=== PATIENT | female | born 2000 | race Caucasian/White ===

== ENCOUNTER → 2022-02-03 | Outpatient (CLI) | payer OTHER ==
[2022-02-03 15:50] LABS: BASO # 0.1 10^3/uL (0.0-0.2); BASO % 0.6 % (0.0-1.0); EOS # 0.4 10^3/uL (0.0-0.5); EOS % 3.8 % (0.0-3.0); HEMOGLOBIN 15.1 g/dl (12.0-15.5); LYMPH # 3.3 10^3/uL (1.5-5.0); LYMPH % 29.8 % (24.0-44.0); MEAN CORPUSCULAR HEMOGLOBIN 30.4 pg (27.0-33.0); MEAN CORPUSCULAR HGB CONC 34.3 g/dl (32.0-36.5); MEAN CORPUSCULAR VOLUME 88.7 fl (80.0-96.0); MONO # 0.7 10^3/uL (0.0-0.8); MONO % 6.4 % (2.0-8.0); NEUTROPHILS # 6.5 10^3/uL (1.5-8.5); NEUTROPHILS % 58.9 % (36.0-66.0); PLATELET COUNT, AUTOMATED 257 10^3/uL (150-450); RED BLOOD COUNT 4.96 10^6/uL (4.00-5.40); WHITE BLOOD COUNT 11.1 10^3/uL (4.0-10.0)
[2022-02-03 16:18] LABS: ALBUMIN 4.3 GM/DL (3.2-5.2); ALT/SGPT 21 U/L (12-78); BILIRUBIN,TOTAL 0.6 MG/DL (0.2-1.0); BLOOD UREA NITROGEN 13 MG/DL (7-18); CALCIUM LEVEL 9.9 MG/DL (8.5-10.1); CARBON DIOXIDE LEVEL 26 MEQ/L (21-32); CHLORIDE LEVEL 108 MEQ/L (98-107); CREATININE FOR GFR 0.85 MG/DL (0.55-1.30); GLOMERULAR FILTRATION RATE > 60.0 (>60); GLUCOSE, FASTING 104 MG/DL (70-100); SODIUM LEVEL 141 MEQ/L (136-145); TOTAL PROTEIN 7.8 GM/DL (6.4-8.2)
== END ==
LOC: M WUC 13:38 → EDBD 13:38
PROVIDERS: ATTEND Nurse Practitioner Family
DX: R94.4 Abnormal results of kidney function studies (principal); R05.1 Acute cough

== ENCOUNTER → 2022-02-23 | Outpatient (CLI) | payer OTHER ==
[2022-02-23 16:49] LABS: CHOLESTEROL RISK RATIO 3.366 (<5); FREE T4 0.94 NG/DL (0.76-1.46); THYROID STIMULATING HORMONE 1.2 uIU/ML (0.358-3.740)
[2022-02-23 17:02] LABS: FOLLICLE STIMULATING HORMONE 2.4 mIU/mL; LUTEINIZING HORMONE 5.4 mIU/mL; PROLACTIN 16.6 NG/ML
[2022-02-25 20:10] LABS: TESTOSTERONE FREE (DIRECT) 2.3 pg/mL (0.0-4.2)
== END ==
LOC: M WUC 13:34
PROVIDERS: ATTEND Nurse Practitioner Family
DX: N92.6 Irregular menstruation, unspecified (principal)

== ENCOUNTER → 2022-03-26 | Outpatient (CLI) | payer OTHER | LOC: M WUC 13:47 | PROVIDERS: ATTEND Physician Assistant | DX: R07.1 Chest pain on breathing (principal) ==

== ENCOUNTER → 2022-06-23 | Outpatient (CLI) | payer OTHER ==
[2022-06-23 21:26] LABS: HCG, SERUM QUANTITATIVE 47715.1 MIU/ML (<4.2)
[2022-06-23 23:21] LABS: HCG, SERUM QUALITATIVE POSITIVE (NEGATIVE)
== END ==
LOC: M WUC 10:26
PROVIDERS: ATTEND Nurse Practitioner Family
DX: N91.2 Amenorrhea, unspecified (principal)

== ENCOUNTER → 2022-06-25 | Outpatient (CLI) | payer OTHER ==
[2022-06-25 18:25] LABS: HEMATOCRIT 42.2 % (36.0-47.0); HEMOGLOBIN 14.1 g/dl (12.0-15.5); MEAN CORPUSCULAR HEMOGLOBIN 30.1 pg (27.0-33.0); MEAN CORPUSCULAR HGB CONC 33.4 g/dl (32.0-36.5); PLATELET COUNT, AUTOMATED 238 10^3/uL (150-450); RED BLOOD COUNT 4.69 10^6/uL (4.00-5.40); WHITE BLOOD COUNT 9.8 10^3/uL (4.0-10.0)
[2022-06-25 18:41] LABS: GC DNA AMPLIFICATION NEGATIVE (NEGATIVE)
[2022-06-25 20:38] LABS: HEPATITIS C VIRUS ABY INDEX 0.1 INDEX (<0.8); HIV 1&2 SCREEN CENTAUR NEGATIVE (NEGATIVE)
== END ==
LOC: M PLALAB 12:55
PROVIDERS: ATTEND Obstetrics & Gynecology
DX: Z34.01 Encounter for supervision of normal first pregnancy, first trimester (principal); Z3A.00 Weeks of gestation of pregnancy not specified

== ENCOUNTER → 2022-07-30 | Outpatient (CLI) | payer OTHER | LOC: M PLALAB 11:18 | PROVIDERS: ATTEND Obstetrics & Gynecology | DX: Z36.89 Encounter for other specified antenatal screening (principal) ==

== ENCOUNTER → 2022-09-22 | Outpatient (CLI) | payer OTHER | LOC: M WHC 06:52 | PROVIDERS: ATTEND Specialist | DX: Z36.3 Encounter for antenatal screening for malformations (principal); Z3A.19 19 weeks gestation of pregnancy ==

== ENCOUNTER → 2022-10-26 | Outpatient (CLI) | payer OTHER | LOC: M WHC 07:33 | PROVIDERS: ATTEND Advanced Practice Midwife | DX: Z34.02 Encounter for supervision of normal first pregnancy, second trimester (principal) ==

== ENCOUNTER → 2022-11-17 | Outpatient (CLI) | payer OTHER ==
[2022-11-17 14:07] LABS: HEMATOCRIT 37.4 % (36.0-47.0); HEMOGLOBIN 12.3 g/dl (12.0-15.5); MEAN CORPUSCULAR HGB CONC 32.9 g/dl (32.0-36.5); MEAN CORPUSCULAR VOLUME 91.2 fl (80.0-96.0); PLATELET COUNT, AUTOMATED 246 10^3/uL (150-450)
[2022-11-17 15:45] LABS: GC DNA AMPLIFICATION NEGATIVE (NEGATIVE)
== END ==
LOC: M PLALAB 10:38
PROVIDERS: ATTEND Obstetrics & Gynecology
DX: Z36.9 Encounter for antenatal screening, unspecified (principal)
CPT/HCPCS: 36415; 82950; 85027; 86850; 86900; 86901; 87810; 87850; 90471; 90715; G0463; J2790

== ENCOUNTER → 2023-01-20 | Outpatient (REF) | payer OTHER ==
[~2023-01-20] MED LIST: COLA100C5 PO; IBUP80TA PO; OXYC1TAB23 PO; PRENTAB9 PO
== END ==
LOC: M PLALAB 09:27
PROVIDERS: ATTEND Obstetrics & Gynecology
DX: Z3A.36 36 weeks gestation of pregnancy (principal)
CPT/HCPCS: 87081; G0463

== ENCOUNTER → 2023-06-07 | Outpatient (CLI) | payer OTHER | LOC: M WHC 12:54 | PROVIDERS: ATTEND Registered Nurse | DX: N64.4 Mastodynia (principal) ==

== ENCOUNTER 2024-06-30 13:38 | Outpatient (CLI) | payer OTHER ==
[~2024-06-30] VITALS: Ht 157.5 cm; Wt 87.0 kg
[2024-06-30 13:55] VITALS: BP 114/66
[2024-06-30] MEDS ORDERED: PROZ10CA7 PO (13:58)
[2024-06-30] MEDS ORDERED: HOME MED LIST COMPLETE! XX SCH (14:00)
[2024-06-30 15:42] LABS: AMORPHOUS SEDIMENT SMALL (NEGATIVE); APPEARANCE, URINE HAZY (CLEAR); BACTERIA, URINE AUTO NEGATIVE (NEGATIVE); BILIRUBIN, URINE AUTO NEGATIVE (NEGATIVE); BLOOD, URINE BLOOD NEGATIVE (NEGATIVE); COLOR, URINE YELLOW (YELLOW); GLUCOSE, URINE (UA) AUTO NEGATIVE (NEGATIVE); KETONE, URINE AUTO NEGATIVE (NEGATIVE); LEUKOCYTE ESTERASE, URINE AUTO NEGATIVE (NEGATIVE); MUCUS, URINE SMALL (NEGATIVE); NITRITE, URINE AUTO NEGATIVE (NEGATIVE); PROTEIN, URINE AUTO NEGATIVE (NEGATIVE); RBC, URINE AUTO 0 /HPF (0-3); SPECIFIC GRAVITY URINE AUTO 1.014 (1.002-1.035); SQUAMOUS EPITHELIAL CELL UR AU 0 /HPF (0-6); UROBILINOGEN, URINE AUTO 0.2 mg/dL (0.0-2.0); WBC, URINE AUTO 3 /HPF (0-3)
== END 2024-06-30 15:22 | disposition home or self-care (01) ==
LOC: M LDO 13:38
PROVIDERS: ATTEND Advanced Practice Midwife
DX: O26.893 Other specified pregnancy related conditions, third trimester (principal); O34.211 Maternal care for low transverse scar from previous cesarean delivery; O99.343 Other mental disorders complicating pregnancy, third trimester; O99.513 Diseases of the respiratory system complicating pregnancy, third trimester; F32.A Depression, unspecified; R10.2 Pelvic and perineal pain; J45.909 Unspecified asthma, uncomplicated; Z3A.28 28 weeks gestation of pregnancy
CPT/HCPCS: 59025; 81001; G0463

== ENCOUNTER 2024-08-10 22:13 | Outpatient (CLI) | payer OTHER ==
[~2024-08-10] VITALS: Ht 157.5 cm; Wt 91.8 kg
[~2024-08-10 22:13] MED LIST changes: +PROZ10CA7 PO
[2024-08-10 22:29] VITALS: BP 121/67
== END 2024-08-10 23:18 | disposition home or self-care (01) ==
LOC: M LDO 22:13
PROVIDERS: ATTEND Specialist
DX: O26.893 Other specified pregnancy related conditions, third trimester (principal); O26.23 Pregnancy care for patient with recurrent pregnancy loss, third trimester; R10.2 Pelvic and perineal pain; Z3A.34 34 weeks gestation of pregnancy
CPT/HCPCS: 59025; G0463

== ENCOUNTER → 2024-08-18 | Outpatient (CLI) | payer OTHER ==
[2024-08-18 16:14] LABS: GLUCOSE CHALLENGE TEST 1 HOUR 86 MG/DL (LESS THAN 140); HEMATOCRIT 34.1 % (36.0-47.0); HEMOGLOBIN 11.2 g/dl (12.0-15.5); MEAN CORPUSCULAR HEMOGLOBIN 28.8 pg (27.0-33.0); MEAN CORPUSCULAR HGB CONC 32.8 g/dl (32.0-36.5); MEAN CORPUSCULAR VOLUME 87.7 fl (80.0-96.0); PLATELET COUNT, AUTOMATED 259 10^3/uL (150-450); RED BLOOD COUNT 3.89 10^6/uL (4.00-5.40); WHITE BLOOD COUNT 9.4 10^3/uL (4.0-10.0)
[2024-08-18 16:50] LABS: HIV 1&2 SCREEN NEGATIVE (NEGATIVE)
[2024-08-18 16:57] LABS: HEPATITIS C VIRUS ABY INDEX 0.02 INDEX (<0.8)
[2024-08-18 17:42] LABS: GC DNA AMPLIFICATION NEGATIVE (NEGATIVE)
== END ==
LOC: M PLALAB 11:40
PROVIDERS: ATTEND Obstetrics & Gynecology
DX: Z34.93 Encounter for supervision of normal pregnancy, unspecified, third trimester (principal)
CPT/HCPCS: 36415; 82950; 85027; 86780; 86803; 86850; 86900; 86901; 87088; 87186; 87389; 87810; 87850; J2790

== ENCOUNTER → 2024-08-24 | Outpatient (REF) | payer OTHER | LOC: M SFHCWAGY 12:29 | PROVIDERS: ATTEND Nurse Practitioner Family | DX: Z36.89 Encounter for other specified antenatal screening (principal); Z3A.36 36 weeks gestation of pregnancy ==

== ENCOUNTER 2024-09-20 06:39 | Inpatient (IN) | payer OTHER ==
[2024-09-20] VITALS (14 sets, daily range): BP systolic 115–146; BP diastolic 57–76; O2SAT 98–99
[~2024-09-20] VITALS: Ht 157.5 cm; Wt 95.5 kg
[2024-09-20] MEDS ORDERED: HYDR-643 PO (07:04)
[2024-09-20] MEDS ORDERED: HOME MED LIST COMPLETE! XX SCH (07:05)
[2024-09-20] MEDS: LACTATED RINGER'S 1000 ML IV STA (07:58)
[2024-09-20] MEDS ORDERED: METHYLERGONOVINE MALEATE 0.2MG/ML 1ML VIAL IM PRN (08:00)
[2024-09-20] MEDS ORDERED: OXYTOCIN DRIP 30 UNITS in IV 1 EA IV PRN (08:00)
[2024-09-20] MEDS ORDERED: LR 1,000 ML IV SCH (08:00)
[2024-09-20] MEDS ORDERED: OXYTOCIN INJ 10UNITS/ML 1ML VIAL IM PRN (08:00)
[2024-09-20] MEDS ORDERED: TRANEXAMIC ACID INJection 1,000 MG in NS 100 ML IV PRN (08:00)
[2024-09-20] MEDS ORDERED: CARBOPROST TROMETHAMINE 250 MCG/ML AMP IM PRN (08:00)
[2024-09-20 08:30] LABS: HEMATOCRIT 35.9 % (36.0-47.0); HEMOGLOBIN 12.1 g/dl (12.0-15.5); MEAN CORPUSCULAR HEMOGLOBIN 28.7 pg (27.0-33.0); MEAN CORPUSCULAR HGB CONC 33.7 g/dl (32.0-36.5); MEAN CORPUSCULAR VOLUME 85.3 fl (80.0-96.0); PLATELET COUNT, AUTOMATED 276 10^3/uL (150-450); RED BLOOD COUNT 4.21 10^6/uL (4.00-5.40); WHITE BLOOD COUNT 14.4 10^3/uL (4.0-10.0)
[2024-09-20] MEDS: OXYTOCIN DRIP 30 UNITS in IV 1 EA IV PRN (09:21)
[2024-09-20] MEDS: LIDOCAINE 1% MDV 20ML VIAL INFIL PRN (09:25)
[2024-09-20 09:36] LABS: HIV 1&2 SCREEN NEGATIVE (NEGATIVE)
[2024-09-20 09:44] LABS: HEPATITIS C VIRUS ABY INDEX 0.09 INDEX (<0.8)
[2024-09-20] MEDS ORDERED: RHOGAM 300MCG (1500IU) INJ IM SCH (10:10)
[2024-09-20] MEDS ORDERED: IBUPROFEN 600MG TAB PO PRN (10:10)
[2024-09-20] MEDS ORDERED: METHYLERGONOVINE MALEATE 0.2 MG TAB PO PRN (10:10)
[2024-09-20] MEDS ORDERED: ACETAMINOPHEN 325 MG TAB PO PRN (10:10)
[2024-09-20] MEDS: IBUPROFEN 800 MG TAB PO PRN (16:27)
[2024-09-20] MEDS: ACETAMINOPHEN 500 MG TAB PO PRN (20:40)
[2024-09-20] MEDS: DIBUCAINE 1% OINTMENT 30GM TOP PRN (20:40)
[2024-09-21] MEDS: DOCUSATE SODIUM 100MG CAPSULE PO PRN (01:58)
[2024-09-21 05:58] VITALS: BP 116/70; O2SAT 97
[2024-09-21 08:00] VITALS: BP 116/70; TEMP 98.3; O2SAT 97
[2024-09-21] MEDS: PRENATAL VITAMINS CHEWABLE TABLET PO SCH (08:00)
[2024-09-22] MEDS ORDERED: MEASLES,MUMPS,RUBELLA VACCINE INJ (MMR-II) SC.IMMUN ONE (09:00)
== END 2024-09-21 13:05 | disposition home or self-care (01) | DRG 807 ==
LOC: M LDO 06:39 → M LDI 07:57 → M OBS 13:33
PROVIDERS: ADMIT Obstetrics & Gynecology; ATTEND Advanced Practice Midwife
PROC: 10E0XZZ Delivery of Products of Conception, External Approach (ICD-10-PCS; principal; 2024-09-20)
PROC: 0HQ9XZZ Repair Perineum Skin, External Approach (ICD-10-PCS; 2024-09-20)
DX: O34.211 Maternal care for low transverse scar from previous cesarean delivery (principal); Z37.0 Single live birth; Z3A.40 40 weeks gestation of pregnancy; O70.0 First degree perineal laceration during delivery; O09.32 Supervision of pregnancy with insufficient antenatal care, second trimester; O09.33 Supervision of pregnancy with insufficient antenatal care, third trimester

== ENCOUNTER 2024-10-29 00:33 | Emergency (ER) | payer OTHER ==
[~2024-10-29] VITALS: Ht 160 cm; Wt 81.8 kg
[~2024-10-29 00:33] MED LIST changes: +HYDR-643 PO
[2024-10-29 00:54] LABS: HEMATOCRIT 37.9 % (36.0-47.0); HEMOGLOBIN 12.3 g/dl (12.0-15.5); MEAN CORPUSCULAR HGB CONC 32.5 g/dl (32.0-36.5); MEAN CORPUSCULAR VOLUME 86.3 fl (80.0-96.0); PLATELET COUNT, AUTOMATED 244 10^3/uL (150-450); RED BLOOD COUNT 4.39 10^6/uL (4.00-5.40); WHITE BLOOD COUNT 9.5 10^3/uL (4.0-10.0)
[2024-10-29 01:23] LABS: ALBUMIN 3.5 G/DL (3.2-5.2); ALKALINE PHOSPHATASE 96 U/L (35-104); ALT/SGPT 36 U/L (7.0-40); AST/SGOT 21 U/L (<34); BILIRUBIN,DIRECT < 0.1 MG/DL (<0.4); BILIRUBIN,TOTAL 0.2 MG/DL (0.3-1.2); BLOOD UREA NITROGEN 9 MG/DL (9-23); CALCIUM LEVEL 8.8 MG/DL (8.5-10.1); CARBON DIOXIDE LEVEL 20 MMOL/L (20-31); CHLORIDE LEVEL 111 MMOL/L (98-107); CREATININE FOR GFR 0.67 MG/DL (0.55-1.30); GLOMERULAR FILTRATION RATE > 60.0 (>60); GLUCOSE, FASTING 129 MG/DL (60-100); POTASSIUM SERUM 3.8 MMOL/L (3.5-5.1); SALICYLATE LEVEL < 3.0 MG/DL (<30); SODIUM LEVEL 144 MMOL/L (136-145); TOTAL PROTEIN 7.2 G/DL (5.7-8.2)
[2024-10-29 01:26] LABS: THYROID STIMULATING HORMONE 1.443 uIU/ML (0.55-4.78)
[2024-10-29 02:10] LABS: HCG, SERUM QUALITATIVE NEGATIVE (NEGATIVE)
[2024-10-29 02:50] LABS: AMPHETAMINES LEVEL URINE NEGATIVE (NEGATIVE); BARBITURATES URINE NEGATIVE (NEGATIVE); BENZODIAZEPINES URINE NEGATIVE (NEGATIVE); CANNABINOIDS URINE POSITIVE (NEGATIVE); COCAINE METABOLITE URINE NEGATIVE (NEGATIVE); METHADONE URINE NEGATIVE (NEGATIVE); OPIATES URINE NEGATIVE (NEGATIVE); PHENCYCLIDINE URINE NEGATIVE (NEGATIVE)
[2024-10-29] MEDS ORDERED: FLUO-290 PO (03:30)
[2024-10-29] MEDS ORDERED: HOME MED LIST COMPLETE! XX SCH (03:35)
[2024-10-29 07:31] VITALS: BP 118/63; TEMP 97.9; O2SAT 99
== END 2024-10-29 07:37 | disposition home or self-care (01) ==
LOC: M ED 00:33
DX: F43.0 Acute stress reaction (principal); F10.129 Alcohol abuse with intoxication, unspecified; F32.A Depression, unspecified; F41.9 Anxiety disorder, unspecified; F43.10 Post-traumatic stress disorder, unspecified; F17.200 Nicotine dependence, unspecified, uncomplicated; F12.10 Cannabis abuse, uncomplicated; Z88.1 Allergy status to other antibiotic agents; Z91.018 Allergy to other foods